=== PATIENT | female | born 1990 | race Hispanic/Latino ===

== ENCOUNTER 2019-06-02 11:49 | Emergency (ER) | payer SELFPAY ==
[2019-06-02 11:51] VITALS: BP 115/72; PULSE 67; RESP 16; TEMP 36.2; O2SAT 98; BMI 25.4
--- NOTE | 2019-06-02 12:12 | ED.DCSUM_ITS ---
History of Present Illness Chief Complaint: Abd Pain Informant: Patient, - - Except click and there Limited by: Language barrier - Patient speaks no Bulgarian. Friend accompanied her to the emergency department. She was comfortable having friend interpret questions and answers. Onset: Days Context: Sudden Onset Timing: Continuous, Waxes and wanes Quality: Left upper quadrant/flank with radiation to the suprapubic region. Location: Pain Current Severity: Mild Maximum Severity: Moderate Worsened by: Nothing in particular Relieved by: Nothing Associated Symptoms: Urgency and nausea Narrative: Patient is a 28-year-old woman who states her last normal menstrual. Was May 17, 2019. She denies history of ovarian cyst, endometriosis and denies prior . She denies history of renal or ureterolithiasis. She presents from urgent care for evaluation of her left upper quadrant/flank pain that radiates inferiorly. She describes as intense pain waxes and wanes in its intensity. She does endorse urgency without hematuria or dysuria. She denies vaginal bleeding or discharge. She denies fever or chills. She states occasionally the pain is worse with deep breathing. There is no history of PE or DVT. Prior similar symptoms: No Recent Illness/Hospitalization: No - Past Medical History (1) No significant past medical history Status: Acute Past Medical History - Allergies and Home Meds Allergies/Adverse Reactions: Allergies Penicillins [PCN] Allergy (Verified 06/02/19 11:54) Rash Primary Care Physician: NOT,DEFINED [NON-STAFF] - Past Medical History: None Surgical History: no surgical history Lives: Alone Smoking Status: Never smoker Drugs: None Review of Systems General: Denies: Chills, Fever, Sweats Eyes: Denies: Visual changes - bilaterally, Diplopia ENT: Denies: Rhinorrhea, Sore throat Cardiovascular: Denies: Chest pain, Palpitations, Heart racing Respiratory: Denies: Dyspnea, Cough, Dyspnea on exertion Gastrointestinal: Reports: Abdominal pain, Nausea. Denies: Vomiting, Diarrhea, Constipation, Melena, Hematochezia Genitourinary: Reports: - - Patient endorses urgency.. Denies: Dysuria, Hematuria, Frequency Musculoskeletal: Denies: Myalgias, Arthralgias, Back pain, Swelling, Extremity Pain Skin: Denies: Rash, Wounds Neurological: Denies: Headache, Weakness, Parasthesia, Numbness Endocrine: Denies: Polyuria, Polydipsia Hematologic: Denies: Easy bruising, Easy bleeding Allergy: Denies: Uticaria, Swelling of the mouth Physical Exam Vital Signs/Narrative: Vital Signs Temp Pulse Resp BP Pulse Ox 06/02/19 11:51 97.1 F L 67 16 115/72 98 Inital Vital Signs reviewed: Yes General: Well nourished, Well developed, No Acute Distress Head: Normocephalic, Atraumatic Eyes: Perrl, EOMI. Negative for: Pale conjunctiva, Scleral icterus ENT: Moist mucous membranes, No rhinorrhea Neck: Supple, Nontender, No lymphadenopathy, No JVD Cardiovascular: Regular rate, Regular rhythm, No murmurs Respiratory: No distress, CTA bilaterally, Chest nontender Abdomen: Soft, Nondistended, No masses, Tender, Hypoactive bowel sounds Back: Nontender, Normal Inspection, CVA tenderness - On the left Extremities: Nontender, No edema, - - There is no asymmetry, swelling, discoloration, leg vein distention, palpable cords or tenderness along the distribution of the deep venous system. Skin: Normal color, No rash, No Trauma. Negative for: Cyanosis, Diaphoresis, J aundice Neurological: Alert, Oriented x3, Cranial nerves II-XII grossly intact, Normal Strength, Normal Sensation, Normal Gait Psychological: Normal affect, Normal Mood Diagnostic/Tx/Re-eval Impressions Abdomen/Pelvis CT 06/02/19 13:37 IMPRESSION: Normal unenhanced CT of the abdomen and pelvis. Electronically Signed: Floyd Farmer, at 15:17 EDT , Service support , 06/02/19 13:37 Abdomen/Pelvis without Cont [CT] Stat Laboratory Results 06/02/19 06/02/19 06/02/19 12:20 12:20 12:20 WBC 8.4 RBC 4.90 Hgb 14.9 Hct 43.6 MCV 89.0 MCH 30.4 MCHC 34.2 RDW 12.6 RDW Differential 40.2 Plt Count 147 L MPV 12.2 H Immature Gran % (Auto) 0.100 Neut % (Auto) 53.1 Lymph % (Auto) 41.1 H Frontier % (Auto) 4.0 Eos % (Auto) 1.3 Baso % (Auto) 0.4 Absolute Neuts (auto) 4.5 Absolute Lymphs (auto) 3.47 Total Counted Not Reportable Sodium 142 Potassium 4.2 Chloride 109 H Carbon Dioxide 24.0 Anion Gap 9 BUN 10 Creatinine 0.69 Estim Creat Clear Calc 107.56 Est GFR (MDRD) Af Amer 127 Est GFR (MDRD) Non-Af 105 BUN/Creatinine Ratio 14.4 Glucose 90 Calcium 9.2 Serum , Qual NEGATIVE Urine Color Urine Clarity Urine pH Ur Specific [place] Urine Protein Urine Glucose (UA) Urine Ketones Urine Occult Blood Urine Nitrite Urine Bilirubin Urine Urobilinogen Ur Leukocyte Esterase Urine RBC Urine WBC Ur Squamous Epith Cells Amorphous Sediment Urine Bacteria Urine Mucus 06/02/19 12:21 WBC RBC Hgb Hct MCV MCH MCHC RDW RDW Differential Plt Count MPV Immature Gran % (Auto) Neut % (Auto) Lymph % (Auto) Frontier % (Auto) Eos % (Auto) Baso % (Auto) Absolute Neuts (auto) Absolute Lymphs (auto) Total Counted Sodium Potassium Chloride Carbon Dioxide Anion Gap BUN Creatinine Estim Creat Clear Calc Est GFR (MDRD) Af Amer Est GFR (MDRD) Non-Af BUN/Creatinine Ratio Glucose Calcium Serum , Qual Urine Color Yellow Urine Clarity Sl. Cloudy Urine pH 8.0 Ur Specific [place] 1.015 Urine Protein Negative Urine Glucose (UA) Normal Urine Ketones Negative Urine Occult Blood Negative Urine Nitrite Negative Urine Bilirubin Negative Urine Urobilinogen Normal Ur Leukocyte Esterase Negative Urine RBC 0 SEEN Urine WBC 0-5 SEEN Ur Squamous Epith Cells 0-5 SEEN Amorphous Sediment 1+ Urine Bacteria RARE Urine Mucus RARE - Medical Decision Making Differential diagnosis includes pyelonephritis, ureteral stone, abdominal pain of unknown etiology. Doubt pulmonary embolus since patient has no risk factors and is PERC negative. With no history of drinking and no intolerance to food doubt pancreatitis. To evaluate patient's symptoms CBC, BMP, UA and serum test were ord ered. Mrs. Leyva is friend has left. The diplomatic interpreter/translator service was used. Patient still reports pain. Since she is not she was ordered 50 mg of Toradol. Because she is complaining of persistent left flank pain radiating anteriorly will obtain CT of the abdomen pelvis without contrast to evaluate for ureterolithiasis. Patient's laboratory tests, urinalysis and CAT scan are normal. The cause of her pain is unknown. ED Disposition - Plan for ED Patient: Disposition: Home or Assisted Living Diagnosis: Acute left flank pain, Left upper quadrant pain Instructions: ABDOMINAL PAIN, Unknown Cause, (Female) Referrals: NOT,DEFINED [NON-STAFF] - Maryann Ivory [NON-STAFF] - 3-5 Days if not improving Print Language: Albanian
[2019-06-02 12:30] LABS: Red Blood Cells-Urine 0 SEEN /hpf (0-5)
[2019-06-02 12:40] LABS: Absolute Lymphocyte Count 3.47 X10^3/ul (0.83-4.51); Absolute Neutrophil Count 4.5 X10^3/uL (2.0-7.7); Basophil# 0.03 X10^3/uL; Basophil% 0.4 % (0-1); Eosinophil# 0.11 X10^3/uL; Eosinophils% 1.3 % (0-5); Hematocrit 43.6 % (37-47); Hemoglobin 14.9 g/dl (12.0-15.0); Lymphocyte # 3.47 X10^3/ul (4.0); Lymphocyte % 41.1 % (19-41); Mean Corp Hgb Conc 34.2 g/gl (32-36); Mean Corpuscular Hgb 30.4 pg (27.0-32.0); Mean Platelet Vol. 12.2 fl (6.2-12.0); Monocyte# 0.34 X10^3/uL; Neutrophil # 4.48 X10^3/uL (2.7-7.7); Neutrophil % 53.1 % (47-70); Platelet Count 147 K/mm3 (150-450); RBC Distribution Width CV 12.6 % (11.6-14.6); RBC Distribution Width SD 40.2 fl (35.1-43.9); White Blood Count 8.4 K/mm3 (4.4-11.0)
[2019-06-02 12:41] LABS: POSITIVE COUNT NO; POSITIVE DIFFERENTIAL NO; POSITIVE MORPHOLOGY NO
[2019-06-02 12:46] LABS: Color, Urine Yellow (Yellow); Glucose, Dipstick Normal (Normal); Ketone-Dipstick Negative (Negative); Leukocyte Esterase-Dipstick Negative /ul (Negative); Nitrite-Dipstick Negative (Negative); Occult Blood-Urine Negative /ul (Negative); Protein-Dipstick Negative (Negative); Specific Gravity, Urine 1.015 (1.002-1.030); Urine Bilirubin Dipstick Negative (Negative); Urine Clarity Sl. Cloudy (Clear); Urine Urobilinogen Normal (Normal)
[2019-06-02 12:59] LABS: Bacteria RARE /hpf (None Seen); Squamous Epithelial Cells - UA 0-5 SEEN /hpf (5-10); White Blood Cells 0-5 SEEN /hpf (0-5)
[2019-06-02 13:00] LABS: Amorphous Sediment 1+; Mucous, Urine RARE /hpf (<or=2+)
[2019-06-02 13:05] LABS: Anion Gap 9 (5-15); BUN 10 mg/dL (7-18); BUN/Creat Ratio 14.4 RATIO (10-20); Calcium,Total 9.2 mg/dL (8.5-10.1); Chloride 109 mmol/L (98-107); Creatinine, Serum 0.69 mg/dL (0.55-1.02); EST Glomerular Filtration Rate 105 mL/min (>60); Est Glom Filt Rate - Afr Amer 127 mL/min (>60); Estimated Creatinine Clearance 107.56 ml/min; Glucose 90 mg/dL (74-106); Potassium 4.2 mmol/L (3.5-5.1); Sodium Level 142 mmol/L (136-145)
[2019-06-02 13:22] LABS: Internal QC Validated? YES +Cl - CLEAR BKGD; Pregnancy, Serum, hCG Quali. NEGATIVE Negative
--- NOTE | 2019-06-02 13:37 | CT_ITS ---
STUDY: CT ABDOMEN AND PELVIS WITHOUT CONTRAST REASON FOR EXAM: Female, 28 years old. Left flank pain. RADIATION DOSAGE (If Supplied By Facility): CTDIvol = ( 7.94 ) mGy, DLP = ( 393.56 ) mGycm TECHNIQUE: Transaxial images were obtained from the dome of the diaphragm to the symphysis pubis without oral contrast, and without intravenous contrast. Sagittal and coronal images were reconstructed. Individualized dose optimization techniques were used for this CT. COMPARISON: None. FINDINGS: The visualized lung bases are unremarkable. The visualized portions of the heart are within normal limits. There is decreased attenuation of the liver consistent with steatosis. Normal gallbladder and extrahepatic biliary system. Normal spleen. Normal pancreas. Normal bilateral adrenal glands. Normal right kidney. Normal left kidney. There is a small hiatal hernia. Normal small intestine. Normal colon. The appendix is visualized and appears normal. Normal abdominal aorta. Normal inferior vena cava. Normal retroperitoneum. Normal urinary bladder. Normal abdominal wall. Normal osseous structures. CT/Abdomen/Pelvis without Cont IMPRESSION: Normal unenhanced CT of the abdomen and pelvis. Electronically Signed: Floyd Farmer, at 15:17 EDT , Service support ,
[2019-06-02 14:00] VITALS: RESP 16
[2019-06-02] MEDS: Ketorolac 15 MG/ML Vial IV (14:17)
[2019-06-02] MEDS: Ondansetron 4 MG/2 ML Vial IV (14:17)
[2019-06-02 15:54] VITALS: BP 121/69; PULSE 68; RESP 16; O2SAT 97
== END 2019-06-02 15:55 | disposition home or self-care (01) ==
PROVIDERS: Emergency Provider Emergency Medicine
DX: R10.12 Left upper quadrant pain (principal)
CPT/HCPCS: 74176; 80048; 81001; 84703; 85025; 96374; 96375; 99284; A4216; J2405